=== PATIENT | female | born 1985 | race Caucasian/White ===

== ENCOUNTER 2020-06-02 05:26 | Day surgery (SDC) | payer BC, OTHER ==
[~2020-06-02 05:26] MED LIST: CEFAZOLIN 1 GM/D5W RTU 1 GM/50 ML RTUPB IV ONE; CEFAZOLIN 1 GM/D5W RTU 1 GM/50 ML RTUPB IV PRN; RINGERS SOLUTION,LACTATED 1,000 ML IV PRN
[2020-06-02 05:47] LABS: APPEARANCE,URINE CLOUDY; BILIRUBIN,URINE NEGATIVE (NEGATIVE); COLOR,URINE YELLOW; GLUCOSE, URINE NEGATIVE (NEGATIVE); KETONES,URINE NEGATIVE (NEGATIVE); LEUKOCYTE ESTERASE,URINE MODERATE (NEGATIVE); NITRITE,URINE NEGATIVE (NEGATIVE); PROTEIN,URINE 30 mg/dL (NEGATIVE); URINE SPECIFIC GRAVITY 1.025; UROBILINOGEN,URINE NEGATIVE mg/dL (<2.0)
[2020-06-02 06:17] LABS: HEMATOCRIT 39.3 % (36.0-47.0); HEMOGLOBIN 13.5 g/dL (12.0-15.5); MEAN CORPUSCULAR HEMOGLOBIN 32.5 pg (27.0-33.4); MEAN CORPUSCULAR HGB CONC 34.2 g/dL (32.0-36.0); MEAN CORPUSCULAR VOLUME 95 fl (80-97); PLATELET COUNT 164 10^3/uL (150-450); RED BLOOD COUNT 4.14 10^6/uL (3.72-5.28); RED CELL DISTRIBUTION WIDTH 13.1 % (11.5-14.0); WHITE BLOOD COUNT 4.6 10^3/uL (4.0-10.5)
[2020-06-02] MEDS ORDERED: LIDOCAINE 0.5% INJ-PF (5 MG/ML) 50 ML SDV ONE (06:21)
[2020-06-02] MEDS ORDERED: FENTANYL CITRATE INJ/PF 100 MCG/2 ML AMPUL ONE (06:23)
[2020-06-02] MEDS ORDERED: MIDAZOLAM 2 MG/2 ML INJ ONE (06:23)
[2020-06-02] MEDS ORDERED: DEXAMETHASONE SOD PHOSPHATE INJ 4 MG/1 ML VIAL ONE (06:23)
[2020-06-02] MEDS ORDERED: SUGAMMADEX SODIUM 200 MG/2 ML SDV IV ONE (06:23)
[2020-06-02] MEDS ORDERED: ONDANSETRON HCL INJ/PF 4 MG/2 ML SDV ONE (06:23)
[2020-06-02] MEDS ORDERED: PROPOFOL INJ 200 MG/20 ML VIAL IV ONE (06:24)
[2020-06-02 06:46] LABS: BLOOD UREA NITROGEN 12 mg/dL (7-20); CARBON DIOXIDE 24 mmol/L (22-30); CHLORIDE 109 mmol/L (98-107); GLUCOSE 100 mg/dL (75-110)
[2020-06-02 06:47] LABS: ANION GAP 4 (5-19)
[2020-06-02] MEDS ORDERED: ONDANSETRON HCL INJ/PF 4 MG/2 ML SDV IV PRN (06:53)
[2020-06-02] MEDS ORDERED: PROMETHAZINE HCL INJ 25 MG/1 ML VIAL IV PRN ×2 (06:53)
[2020-06-02] MEDS ORDERED: MORPHINE SULFATE 10 MG/ML INJ IV PRN (06:53)
[2020-06-02] MEDS ORDERED: MEPERIDINE HCL/PF INJ 25 MG/1 ML DISP.SYRIN IV PRN (06:53)
[2020-06-02] MEDS ORDERED: DIPHENHYDRAMINE HCL 50 MG/ML VIAL IV PRN (06:53)
[2020-06-02] MEDS ORDERED: FENTANYL CITRATE INJ/PF 100 MCG/2 ML AMPUL IV PRN ×3 (06:53)
[2020-06-02] MEDS ORDERED: BUPIVACAINE HCL 0.25 % INJ/PF (2.5 MG/1 ML) 30 ML VIAL ONE (07:19)
--- NOTE | 2020-06-02 08:04 | Operative Report ---
Operative Report DATE OF SURGERY: 06/02/20 PREOPERATIVE DIAGNOSIS: Desires sterilization, desires IUD removal POSTOPERATIVE DIAGNOSIS: Same OPERATION: Laparoscopic Filshie clip sterilization, IUD removal SURGEON: SREE KING ANESTHESIA: GA TISSUE REMOVED OR ALTERED: None COMPLICATIONS: None ESTIMATED BLOOD LOSS: 5 mL INTRAOPERATIVE FINDINGS: Normal uterus tubes and ovaries. Left corpus luteum cyst was present upper abdomen appendix was not visualized PROCEDURE: The usual risks, benefits, expectations and complications of bleeding, infection, anesthesia and damage to other organs have been explaed and understood. No guarantee of permanent sterilization have been made with a risk of of about 1/150/10 years with this procedure. After surgical time out, exam under anesthesia, bladder drained and IUD removed, hulka tenaculum placed. Normal anatomy was noted. The surgeon re-gloved and via an infraumbilical incision thru the subq fat and fascia, the peritoneum was encountered and entered uneventfully. Origin cannula placed and inflated. The pelvis and upper abdomen was examined, a second 5 mm port placed 3 fingerbreadths above symphysis under direct visualization, the tubes identified in their entirety and filshie clips placed on the antimesenteric side 1 cm from the uterine fundus bilaterally. The gas and instruments were removed, Fasci closed with O vicryl, subq with 3O gut. Approximately 10 mL of 1/4% Marcaine was infiltrated in the incision sites
[2020-06-02] MEDS ORDERED: OXYCODONE-ACETAMINOPHEN 5-325 MG TABLET ONE (08:45)
[2020-06-02 09:37] VITALS: BP 128/91
[2020-06-02] MEDS ORDERED: SUCCINYLCHOLINE CHLORIDE INJ 200 MG/10 ML VIAL ONE (14:25)
== END 2020-06-02 09:45 | disposition home or self-care (01) ==
LOC: OROUT 05:26
PROVIDERS: ATTEND Specialist
DX: Z30.2 Encounter for sterilization (principal); Z30.432 Encounter for removal of intrauterine contraceptive device; Z20.828 Contact with and (suspected) exposure to other viral communicable diseases; N83.12 Corpus luteum cyst of left ovary; Z87.891 Personal history of nicotine dependence
CPT/HCPCS: 86900; 86901; 36415; 86850; 85027; 87635; 81025; 80048; 81001; 58301; 58671; J2250; J0690; J1100; J3010; J3490 ×2; J2405; J2704; C9803; 851; J0330